=== PATIENT | male | born 1935 | race Caucasian/White ===

== ENCOUNTER 2016-08-04 18:05 | Emergency (ER) | payer MEDICARE ==
[~2016-08-04] VITALS: Ht 170.2 cm; Wt 95.7 kg
[~2016-08-04 18:05] MED LIST: ALBU8.5H6 IH; ALLP300T; AMIO200T2 PO; ASPI-586; ATOR40TA59; BENZ-13 PO; CARV25TA30; CRV6.25T PO; FURO40TA4; HCT25T; HYDR-3702 PO; HYDR-707; LORA0.5T PO; LOSA100T8; METF500T; METF500T4 PO; NTR.4SL SL; TICA90TA PO
--- OUTSIDE RECORDS SUMMARY | 2016-08-04 18:10 | XMS REPORT | Summary of Care ---
Author Author Jake Ryan M.D. Organization Unknown Address Unknown Phone Unavailable Care Team Providers Care Software Program Manager Name Role Phone Darrin Ryan M.D. Unavailable Jake Ryan M.D. Unavailable Unavailable Jake Ryan Unavailable Unavailable Unavailable Unavailable Functional Status Name Dates Details Functional status health issues are not documented Status: Name Dates Details Cognitive status health issues are not documented Status: Problems Name Dates Details Basal cell carcinoma of shoulder, left (173.61, C44.619) Status: Active Bradycardia (427.89, R00.1) Status: Active Actinic keratosis (702.0, L57.0) Status: Active Anxiety (300.00, F41.9) Status: Active Hyperlipidemia (272.4, E78.5) Status: Active CABG Status: Active CAD (coronary atherosclerotic disease) (414.00, I25.10) Status: Active Gout (274.9, M10.9) Status: Active Hypertension (401.9, I10) Status: Active Type 2 diabetes mellitus (250.00, E11.9) Status: Active Congestive heart failure, NYHA class 1 (428.0, I50.9) Status: Active Osteoarthritis of right knee (715.96, M17.9) Status: Active Allergic cough (786.2, R05) Status: Active Medications Name Dates Details Furosemide 40 MG Oral Tablet TAKE 2 TABLETS DAILY. Refills: 0 Start 25-Jan-2015 Active MetFORMIN HCl - 500 MG Oral Tablet TAKE 1 TABLET TWICE DAILY. Refills: 0 Start 25-Jan-2015 Active Nitrostat 0.4 MG Sublingual Tablet Sublingual Refills: 0 Start 25-Jan-2015 Active Aspirin 81 MG TABS Refills: 0 Start 25-Jan-2015 Active Carvedilol 12.5 MG Oral Tablet Take 1/2 tab daily Refills: 0 Start -Jan-2015 Active Fish Oil 1000 MG Oral Capsule Refills: 0 Start 25-Jan-2015 Active Glucosamine Chondroitin Complx 500-250 MG Oral Capsule Refills: 0 Start 25-Jan-2015 Active MethylPREDNISolone Acetate 80 MG/ML Injection Suspension inject 2ml IM Quantity: 1 Refills: 0 Jake Ryan M.D. Start 18-Sep-2015 Admin Requested Allopurinol 300 MG Oral Tablet TAKE 1 TABLET DAILY. Quantity: 90 Refills: 3 Bucks [email or web address] Start 30-Jan-2016 Active Hydrocodone-Acetaminophen 5-325 MG Oral Tablet take 1 BID prn Refills: 0 Jake Ryan M.D. Start 30-Jan-2016 Active MethylPREDNISolone Acetate 80 MG/ML Injection Suspension INJECT 2 ML Intra-articular Quantity: 1 Refills: 0 Shelby Orestes Felixian Start 28-Feb-2016 Admin Requested Allergies and Adverse Reactions Name Dates Details DENISE Inhibitors (Allergy) Status: Active Penicillins (Allergy) Status: Active Plavix (Allergy) Status: Active Past Medical History Name Dates Details History of Knee pain (719.46, M25.569) Status: Resolved History of Macular degeneration (362.50, H35.30) Status: Resolved History of Osteoarthritis of knee (715.36, M17.9) Status: Resolved Personal history of skin cancer (V10.83, Z85.828) Status: Resolved Procedures Procedure Dates Details History of Pacemaker Placement BASIC METABOLIC PROFILE 1210 Ordered: 30-Jan-2016 Immunization Name Dates Details Fluzone High-Dose 0.5 ML Intramuscular Suspension Prefilled Syringe Lot #: [id number] on: 30-Jan-2016 Family History Name Dates Details Family history of cardiac disorder (V17.49, Z82.49) Status: Active Name Dates Details Family history of malignant neoplasm of urinary bladder (V16.52, Z80.52) Status: Active Social History Name Dates Details - Status: Name Dates Details Former smoker Vital Signs Date Test Result Details 21-Mar-2016 10:18 BP Systolic 102 mm[Hg] Status: Comments: Location: LUE; Position: Sitting BP Diastolic 68 mm[Hg] Status: Comments: Location: LUE; Position: Sitting Temperature 98.1 f Status: Comments: Method: Tympanic Heart Rate 86 /min Status: Comments: Location: ; Weight 214 lb Status: Physical Findings 98 Status: Comments: O2 Saturation Body Mass Index Calculated 30.71 kg/m2 Status: Body Surface Area Calculated 2.15 m2 Status: 28-Feb-2016 13:14 BP Systolic 134 mm[Hg] Status: Comments: Location: ; Position: BP Diastolic 76 mm[Hg] Status: Comments: Location: ; Position: Temperature 97.5 f Status: Comments: Method: Heart Rate 79 /min Status: Comments: Location: ; Physical Findings 99 Status: Comments: O2 Saturation Results Date Description Value Details Results not documented Plan of Care Name Dates Details Planned Observations Planned Goals not documented Planned Encounters Appointment; Provider: Jake Ryan M.D. On 31-Mar-2016 08:30 Instructions Name Dates Details Instructions not documented Encounters Appointment; Darrin Ryan M.D. Encounter Diagnosis: Problem not documented On 28-Feb-2016 13:15 Appointment; Jake Ryan M.D. Encounter Diagnosis: Problem not documented On 30-Jan-2016 13:30 Appointment; Jake Ryan M.D. Encounter Diagnosis: Problem not documented On 28-Nov-2015 16:00 Appointment; Jake Ryan M.D. Encounter Diagnosis: Problem not documented On 10:30 Appointment; Jake Ryan M.D. Encounter Diagnosis: Problem not documented On 18-Sep-2015 09:45 Appointment; Jake Ryan M.D. Encounter Diagnosis: Problem not documented On 22-Aug-2015 10:00 Appointment; Georges Dockery M.D. Encounter Diagnosis: Problem not documented On 13-Jun-2015 09:45 Appointment; Daniel Lang P.A. Encounter Diagnosis: Problem not documented On 30-Apr-2015 10:15 Appointment; Bryce Moore M.D. Encounter Diagnosis: Problem not documented On 12-Apr-2015 16:00 Appointment; Georges Dockery M.D. Encounter Diagnosis: Problem not documented On 14-Mar-2015 10:15 Appointment; Georges Dockery M.D. Encounter Diagnosis: Problem not documented On 31-Jan-2015 13:15 Appointment; Georges Dockery M.D. Encounter Diagnosis: Problem not documented On 24-Jan-2015 06:45 Appointment; Georges Dockery M.D. Encounter Diagnosis: Problem not documented On 23-Jan-2015 14:00
[2016-08-04] MEDS ORDERED: predniSONE 20 MG (DELTASONE) TABLET PO ONE (18:30)
[2016-08-04] MEDS ORDERED: ALBUTEROL 0.083% NEB SOLUTION 2.5 MG/3 ML VIAL INH ONE (18:30)
--- NOTE | 2016-08-04 19:01 | Diagnostic Imaging Report ---
INDICATION: Persistent cough x3 weeks PA and lateral chest obtained at 6:42 p.m. and compared to 07/10/15. There is cardiomegaly and poststernotomy change with unchanged pacemaker device. There are mild chronic appearing increased basilar markings. There is no acute consolidation or pneumothorax or pleural fluid. There is hyperinflation compatible with COPD. There is diffuse degenerative change of the thoracic spine. IMPRESSION: Cardiomegaly and postoperative changes. Chronic appearing increased basilar markings with no acute infiltrate or pneumothorax or pleural fluid. Stable appearance compared to 07/10/15. There is hyperinflation compatible with COPD. Dictated by: Dictated on workstation # [id number]
[2016-08-04] MEDS ORDERED: AZIT250T81 PO (20:43)
[2016-08-04] MEDS ORDERED: ALBU6.7H IH (20:43)
[2016-08-04 20:54] VITALS: BP 134/67
== END 2016-08-04 20:55 | disposition home or self-care (01) ==
LOC: ED 18:07
DX: J44.9 Chronic obstructive pulmonary disease, unspecified (principal); J98.01 Acute bronchospasm; B34.9 Viral infection, unspecified
CPT/HCPCS: 71020; 87486; 87581; 87633; 87798; 94640; 99282; A9270; J7613; 99283